=== PATIENT | female | born 1945 | race Caucasian/White ===

== ENCOUNTER 2018-01-29 08:19 | Outpatient (CLI) | payer MEDICARE, OTHER | END 2018-01-29 08:20 | disposition home or self-care (01) | LOC: BICMAMMO 08:19 | PROVIDERS: ATTEND Specialist | DX: Z12.31 Encounter for screening mammogram for malignant neoplasm of breast (principal) | CPT/HCPCS: 77063; 77067 ==

== ENCOUNTER 2019-05-13 08:22 | Outpatient (CLI) | payer MEDICARE, OTHER ==
--- NOTE | 2019-05-13 08:59 | MMO ---
Bilateral MAMMO Bilat Screen [facility]. CLINICAL HISTORY: Patient is 73 years old and is seen for screening. The patient has no family history of breast cancer. The patient has no personal history of cancer. The patient has a history of bilateral Implants - 1978 SILICONE 1984 SILICONE AND 2003 SALINE. VIEWS: The views performed were: bilateral craniocaudal with tomosynthesis and bilateral mediolateral oblique with tomosynthesis. FILMS COMPARED: The present examination has been compared to prior imaging studies performed at 06/05/2016 and 01/29/2018. This study has been interpreted with the assistance of computer-aided detection. MAMMOGRAM FINDINGS: There are scattered fibroglandular densities. There are stable benign appearing densities seen in both breasts. There are no suspicious masses, suspicious calcifications, or new areas of architectural distortion. IMPRESSION: THERE IS NO MAMMOGRAPHIC EVIDENCE OF MALIGNANCY. A ROUTINE FOLLOW-UP MAMMOGRAM IN 1 YEAR IS RECOMMENDED. THE RESULTS OF THIS EXAM WERE SENT TO THE PATIENT. ACR BI-RADS Category 2 - Benign finding MAMMOGRAPHY NOTE: 1. A negative mammogram report should not delay a biopsy if a dominant of clinically suspicious mass is present. 2. Approximately 10% to 15% of breast cancers are not detected by mammography. 3. Adenosis and dense breasts may obscure an underlying neoplasm. Reported by: NATALIE MARTIN MD Electonically Signed: [id number]
== END 2019-05-13 08:23 | disposition home or self-care (01) ==
LOC: BICMAMMO 08:22
PROVIDERS: ATTEND Specialist
DX: Z12.31 Encounter for screening mammogram for malignant neoplasm of breast (principal)
CPT/HCPCS: 77063; 77067

== ENCOUNTER 2020-10-19 14:45 | Outpatient (CLI) | payer MEDICARE, OTHER | END 2020-10-19 14:46 | disposition home or self-care (01) | LOC: BICMAMMO 14:45 | PROVIDERS: ATTEND Specialist | DX: Z12.31 Encounter for screening mammogram for malignant neoplasm of breast (principal); Z98.82 Breast implant status | CPT/HCPCS: 77063; 77067 ==

== ENCOUNTER 2022-04-13 14:21 | Observation (INO) | payer MEDICARE, OTHER ==
[2022-04-13] MEDS ORDERED: Bacitracin Zinc Ointment 30 gm TUBE ONE (15:14)
[2022-04-13] MEDS ORDERED: Lidocaine 1% (PF) 30 ML VIAL ONE (15:14)
[2022-04-13] MEDS ORDERED: EPINEPHrine 1 MG/ML AMP ONE (15:14)
[2022-04-13 15:46] LABS: Hemoglobin 13.1 g/dL (12.0-16.0)
[2022-04-13] MEDS ORDERED: fentaNYL Citrate/PF 100 MCG/2 ML SYRINGE ONE (15:51)
[2022-04-13] MEDS ORDERED: SUGAMMADEX SODIUM 200 MG/2 ML VIAL ONE (15:53)
[2022-04-13] MEDS ORDERED: NEOSTIGMINE 3 MG/3 ML SYR 3 MG/3 ML SYRINGE ONE (16:31)
[2022-04-13] MEDS ORDERED: PROPOFOL 200 MG/20 ML VIAL ONE (16:31)
[2022-04-13] MEDS ORDERED: Dexamethasone 20 MG/5 ML VIAL ONE (16:31)
[2022-04-13] MEDS ORDERED: Rocuronium Bromide 10 MG/ML (10ML VIAL) ONE (16:31)
[2022-04-13] MEDS ORDERED: Ondansetron PF 4 MG/2 ML Vial ONE (16:31)
[2022-04-13] MEDS ORDERED: Glycopyrrolate 0.2 MG/ML 5 ML SYRINGE ONE (16:31)
[2022-04-13] MEDS ORDERED: Fentanyl 100 MCG/2 ML VIAL ONE ×2 (17:24→17:51)
[2022-04-13] MEDS ORDERED: Labetalol HCl 100 MG/20 ML VIAL ONE (17:27)
[2022-04-13] MEDS ORDERED: Promethazine HCl 25 MG/ML VIAL ONE (17:52)
[2022-04-13] MEDS ORDERED: Morphine 2 MG/ML VIAL ONE ×2 (18:46→20:09)
[2022-04-13] MEDS ORDERED: Acetaminophen 325 MG TAB PO PRN (20:06)
[2022-04-13] MEDS ORDERED: Morphine 2 MG/ML VIAL SLOW IVP PRN (20:06)
[2022-04-13] MEDS ORDERED: Ondansetron ODT 4 MG TAB PO PRN (20:06)
[2022-04-13] MEDS ORDERED: hydrALAZINE 20 MG/ML VIAL SLOW IVP PRN (20:06)
[2022-04-13] MEDS ORDERED: Ondansetron PF 4 MG/2 ML Vial IVP PRN (20:06)
[2022-04-13] MEDS ORDERED: HYDROcodone/Acetaminophen 5/325 mg Tablet PO PRN (20:06)
[2022-04-13] MEDS ORDERED: SUMAtriptan Succinate 50 MG TAB PO SCH (20:15)
[2022-04-13] MEDS ORDERED: Amitriptyline HCl 10 MG TAB PO SCH (20:15)
[2022-04-13] MEDS ORDERED: Amitriptyline HCl 10 MG TAB PO PRN (20:20)
[2022-04-13] MEDS ORDERED: SUMAtriptan Succinate 50 MG TAB PO PRN ×2 (20:20→20:50)
[2022-04-13 21:46] LABS: #Lymphocytes 0.4 thou/uL (1.20-3.40); #Neutrophils 8.3 thou/uL (1.40-6.50); %Basophils 0.1 % (0.0-1.0); %Eosinophils 0.3 % (0.0-10.0); %Lymphocytes 4.4 % (21.0-51.0); %Monocytes 0.4 % (0.0-10.0); %Neutrophils 94.8 % (42.0-75.0); Hemoglobin 13.4 g/dL (12.0-16.0); Mean Corpuscular HGB CONC 32.3 g/dL (32.0-36.0); Mean Corpuscular Hemoglobin 31.8 pg (27.0-31.0); Mean Corpuscular Volume 98.3 fL (78.0-98.0); Mean Platelet Volume 7.7 fL (7.4-10.4); Platelet Count 300 thou/uL (130-400); RBC Distribution Width 11.9 % (11.5-14.5); Red Blood Cell (RBC) Count 4.23 mill/uL (4.20-5.40); White Blood Cell (WBC) Count 8.7 thou/uL (4.8-10.8)
[2022-04-13 21:57] LABS: Anion Gap 14 mmol/L (10-20); BUN (Urea Nitrogen) 7 mg/dL (9.8-20.1); Calc. Creatinine Clearance 0 mL/min (70-130); Calcium 8.6 mg/dL (7.8-10.44); Carbon Dioxide 24 mmol/L (23-31); Chloride 101 mmol/L (98-107); Estimated GFR 86; Glucose 164 mg/dL (83-110); Potassium 3.6 mmol/L (3.5-5.1); Sodium 135 mmol/L (136-145)
[2022-04-13] MEDS ORDERED: Vancomycin 1 GM in Premix Bag 1 BAG IVPB SCH (22:45)
[2022-04-13] MEDS ORDERED: Piperacillin/Tazobactam 3.375 GM in Sodium Chloride 0.9% 100 ML IVPB SCH (23:00)
[2022-04-14] MEDS: Piperacillin/Tazobactam 3.375 GM in Sodium Chloride 0.9% 100 ML IVPB SCH ×2 (04:33→10:21)
[2022-04-14] MEDS ORDERED: FLU VACC QS2022-23(65YR UP)/PF 240 MCG/0.7 ML SYRINGE IM ONE (09:00)
[2022-04-14] MEDS ORDERED: Amlodipine 10 MG TAB PO SCH (12:00)
[2022-04-14] MEDS ORDERED: Vancomycin 1 GM in Premix Bag 1 BAG IVPB SCH (12:00)
[2022-04-15] MEDS ORDERED: Levothyroxine Sodium 50 MCG TAB PO SCH (06:00)
[2022-04-15] MEDS ORDERED: Amlodipine 10 MG TAB PO SCH (09:00)
[2022-04-16 11:45] VITALS: BP 117/71; TEMP 98.4
[2022-04-16 11:49] VITALS: BMI 28.3
== END 2022-04-14 17:06 | disposition home or self-care (01) ==
LOC: SDC 14:21 → SURG A 19:34
PROVIDERS: ADMIT Internal Medicine; ATTEND Internal Medicine
PROC: 0CJS8ZZ Inspection of Larynx, Via Natural or Artificial Opening Endoscopic (ICD-10-PCS; principal; 2022-04-13)
PROC: 0J9500Z Drainage of Left Neck Subcutaneous Tissue and Fascia with Drainage Device, Open Approach (ICD-10-PCS; 2022-04-13)
DX: L02.11 Cutaneous abscess of neck (principal); I10 Essential (primary) hypertension; E03.9 Hypothyroidism, unspecified; G43.909 Migraine, unspecified, not intractable, without status migrainosus; E78.5 Hyperlipidemia, unspecified; Z88.2 Allergy status to sulfonamides; Z88.3 Allergy status to other anti-infective agents
CPT/HCPCS: 21501; 31525; 80048; 84443; 85014; 85018; 85025; 87070; 87075; 87205; 96365; 96366; 96367; 96376; G0378 ×2; J2270; 36415; 70491; 82565; J0171; J1100; J2001; J2405; J2543; J2550; J2704; J3010; J3370; J3490; Q9967